=== PATIENT | female | born 1995 | race African-American/Black ===

== ENCOUNTER 2016-10-29 18:27 | Emergency (ER) | payer OTHER ==
[2016-10-29 17:56] LABS: URINE SOURCE CLEAN CATCH
[2016-10-29 18:25] LABS: URINE APPEARANCE CLEAR; URINE BILIRUBIN NEG (NEG); URINE BLOOD NEG (NEG); URINE COLOR YELLOW; URINE GLUCOSE NEG (NEG); URINE KETONE TRACE (NEG); URINE LEUKOCYTE ESTERASE 1+ (NEG); URINE NITRATE NEG (NEG); URINE PROTEIN NEG (NEG); URINE SPECIFIC GRAVITY 1.024 (1.003-1.035)
[~2016-10-29 18:27] MED LIST: ROBITUSSIN A-C S5 ML PO; VOLTAREN75 MG PO
[2016-10-29 18:28] LABS: URINE BACTERIA AUWI NEG (NEGATIVE); URINE SQUAMOUS EPITHELIAL CELL NONE SEEN /[HPF]
[2016-10-29 18:29] LABS: CULTURE INDICATED? NO
== END 2016-10-29 19:35 | disposition home or self-care (01) ==
LOC: CFTX 18:27
PROVIDERS: Nurse Practitioner
DX: A56.01 Chlamydial cystitis and urethritis (principal); A59.9 Trichomoniasis, unspecified; F17.210 Nicotine dependence, cigarettes, uncomplicated
CPT/HCPCS: 81003; 84703; 87808; 87905; 99284